=== PATIENT | male | born 2000 | race African-American/Black ===

== ENCOUNTER 2019-10-09 15:14 | Emergency (ER) | payer SELFPAY ==
[~2019-10-09] VITALS: Ht 185.4 cm; Wt 55.0 kg
[2019-10-09] MEDS ORDERED: VISCOUS LIDOCAINE 2% 15 ML UDC PO ONE (16:30)
[2019-10-09] MEDS ORDERED: KETOROLAC 30MG/ML VIAL IV STA (16:30)
[2019-10-09] MEDS ORDERED: MAGNESIUM/ALUMINUM HYDROXIDE/SIMETHICONE 30ML UDC PO ONE (16:30)
[2019-10-09 17:45] VITALS: BP 128/59
== END 2019-10-09 17:47 | disposition home or self-care (01) ==
LOC: ER 15:14
DX: R07.89 Other chest pain (principal)
CPT/HCPCS: 93005; 96374; 99283; J1885